=== PATIENT | female | born 1950 | race Caucasian/White ===

== ENCOUNTER 2018-07-18 11:38 | Day surgery (SDC) | payer MEDICARE, OTHER ==
[~2018-07-18] VITALS: Ht 157.5 cm; Wt 72.9 kg
[~2018-07-18 11:38] MED LIST: HYDACE5 PO; HYDCHL12.5 PO; LISI20 PO
== END 2018-07-18 14:10 | disposition home or self-care (01) ==
LOC: ORSCSDS 11:38
PROVIDERS: Surgery
PROC: 0DJD8ZZ Inspection of Lower Intestinal Tract, Via Natural or Artificial Opening Endoscopic (ICD-10-PCS; principal; 2018-07-18 13:00)
DX: K92.1 Melena (principal); K64.8 Other hemorrhoids; K64.4 Residual hemorrhoidal skin tags; I10 Essential (primary) hypertension; E66.9 Obesity, unspecified; Z68.30 Body mass index [BMI] 30.0-30.9, adult; Z79.899 Other long term (current) drug therapy
CPT/HCPCS: J7120

== ENCOUNTER 2021-07-20 10:27 | Inpatient (IN) | payer MEDICARE ==
[~2021-07-20] VITALS: Ht 157.5 cm; Wt 68.9 kg
[2021-07-20 10:51] LABS: BASOPHILS ABSOLUTE AUTO 0.01 K/mm3 (0.00-0.23); BASOPHILS PERCENT AUTO 0 % (0-2); EOSINOPHILS PERCENT AUTO 0 % (0-6); Hematocrit 39.5 % (33.0-51.0); Hemoglobin 12.7 g/dL (11.5-16.0); IMMATURE GRAN ABSOLUTE AUTO 0.09 K/mm3 (0.00-0.10); IMMATURE GRAN PERCENT AUTO 1 % (0-1); LYMPHOCYTES ABSOLUTE AUTO 1.59 K/mm3 (0.84-5.20); LYMPHOCYTES PERCENT AUTO 9 % (21-46); MONOCYTES ABSOLUTE AUTO 0.45 K/mm3 (0.16-1.47); MONOCYTES PERCENT AUTO 3 % (4-13); Mean Corpuscular HGB 29.3 pg (26.0-34.0); Mean Corpuscular HGB Conc 32.2 g/dL (31.5-36.5); Mean Corpuscular Volume 91 fL (80-100); Mean Platelet Volume 10.8 fL (9.1-12.4); NEUTROPHILS ABSOLUTE AUTO 14.99 K/mm3 (1.96-9.15); NEUTROPHILS PERCENT AUTO 88 % (41-73); Platelet Count 257 K/mm3 (150-400); RDW Coefficient Variation 14.8 % (11.7-14.2); RDW Standard Deviation 49.8 fL (35.1-46.3); Red Blood Cell Count 4.34 M/mm3 (3.80-5.20); White Blood Cell Count 17.13 K/mm3 (4.00-11.30)
[2021-07-20 11:16] LABS: Albumin, Blood 2.5 g/dL (3.4-5.0); Albumin/Globulin Ratio 0.6 (0.8-1.8); Bilirubin, Total 0.8 mg/dL (0.1-1.0); Bun/Creatinine Ratio 21.3 (12.0-20.0); Calcium, Blood 8.3 mg/dL (8.5-10.1); Creatinine, Blood 1.08 mg/dL (0.40-1.00); Globulin, Blood 4.3 g/dL (2.2-4.0); Potassium, Blood 4.3 mmol/L (3.5-5.5); Total Protein, Blood 6.8 g/dL (6.4-8.2)
--- NOTE | 2021-07-20 19:02 | NUR ---
SHIFT SUMMARY PATIENT ARRIVED TO THE FLOOR LATE THIS AFTERNOON. PATIENT ALERT AND ORIENTED UPON ARRIVAL. PATIENT TRANSFERED TO BED INDEPENDENTLY. PATIENT ON 6L O2 WITH SATS IN LOW 90S. PATIENT STATES FEELING WEAK. PATIENT ABLE TO ASSIST WITH ADMISSION INFORMATION. PATIENT MADE COMFORTABLE AND ORIENTED TO THE ROOM.
--- NOTE | 2021-07-21 04:09 | NUR ---
SHIFT SUMMARY A/OX4, SBA TO BSC. DESATS EASILY WITH EXERTION. CURRENTLY ON 12L VIA HIGH FLOW NC. VSS, NO ACUTE CHANGES AT THIS TIME. BED IN LOWEST POSITION WITH CALL LIGHT IN REACH. WILL CONTINUE TO MONITOR AND REPORT TO ONCOMING RN.
[2021-07-21 04:58] LABS: BASOPHILS ABSOLUTE AUTO 0.01 K/mm3 (0.00-0.23); BASOPHILS PERCENT AUTO 0 % (0-2); EOSINOPHILS PERCENT AUTO 0 % (0-6); Hematocrit 37.9 % (33.0-51.0); Hemoglobin 11.9 g/dL (11.5-16.0); IMMATURE GRAN ABSOLUTE AUTO 0.13 K/mm3 (0.00-0.10); IMMATURE GRAN PERCENT AUTO 1 % (0-1); LYMPHOCYTES ABSOLUTE AUTO 0.98 K/mm3 (0.84-5.20); LYMPHOCYTES PERCENT AUTO 7 % (21-46); MONOCYTES ABSOLUTE AUTO 0.41 K/mm3 (0.16-1.47); MONOCYTES PERCENT AUTO 3 % (4-13); Mean Corpuscular HGB Conc 31.4 g/dL (31.5-36.5); Mean Corpuscular Volume 92 fL (80-100); Mean Platelet Volume 10.8 fL (9.1-12.4); NEUTROPHILS ABSOLUTE AUTO 13.32 K/mm3 (1.96-9.15); NEUTROPHILS PERCENT AUTO 90 % (41-73); Platelet Count 268 K/mm3 (150-400); RDW Coefficient Variation 14.7 % (11.7-14.2); RDW Standard Deviation 50.4 fL (35.1-46.3); White Blood Cell Count 14.85 K/mm3 (4.00-11.30)
[2021-07-21 05:20] LABS: Alanine Aminotransfer (ALT/SGP 46 U/L (12-78); Albumin, Blood 2.2 g/dL (3.4-5.0); Albumin/Globulin Ratio 0.6 (0.8-1.8); Alk Phos 71 U/L (50-136); Anion Gap 6 mmol/L (6-16); Aspartate Aminotrans (AST/SGOT 31 U/L (12-37); Bilirubin, Total 0.7 mg/dL (0.1-1.0); Blood Urea Nitrogen 22 mg/dL (8-24); Bun/Creatinine Ratio 24.6 (12.0-20.0); CO2, Blood 28 mmol/L (21-32); Calcium, Blood 8.1 mg/dL (8.5-10.1); Chloride, Blood 106 mmol/L (98-108); Glomerular Filtration Rate >60 (60-); Glucose, Blood 107 mg/dL (70-99); Magnesium, Blood 2.6 mg/dL (1.6-2.4); Potassium, Blood 4.3 mmol/L (3.5-5.5); Sodium, Blood 140 mmol/L (136-145); Total Protein, Blood 6.2 g/dL (6.4-8.2)
--- NOTE | 2021-07-21 15:02 | NUR ---
PT UP TO VOID. COUGH MEDS GIVEN. BACK TO BED TO REST.
--- NOTE | 2021-07-21 16:49 | NUR ---
SHIFT SUMMARY PATIENT ALERT AND ORIENTED THIS SHIFT. PATIENT IS WEAK DUE TO DISEASE PROCESS. PATIENT IN A 1 ASSIST TO THE SBC DUE TO WEAKNESS. PATIENT HAS REMAINED IN BED THROUGHOUT THIS SHIFT, WITH FEW USES OF BSC. PATIENT ON 8L O2, O2 SAT IN THE 90S. PATIENT CURRENTLY LYING IN BED RESTING.
[2021-07-22 05:01] LABS: BASOPHILS ABSOLUTE AUTO 0.02 K/mm3 (0.00-0.23); BASOPHILS PERCENT AUTO 0 % (0-2); EOSINOPHILS PERCENT AUTO 0 % (0-6); Hematocrit 39.6 % (33.0-51.0); Hemoglobin 12.4 g/dL (11.5-16.0); IMMATURE GRAN ABSOLUTE AUTO 0.08 K/mm3 (0.00-0.10); IMMATURE GRAN PERCENT AUTO 1 % (0-1); LYMPHOCYTES ABSOLUTE AUTO 1.26 K/mm3 (0.84-5.20); LYMPHOCYTES PERCENT AUTO 9 % (21-46); MONOCYTES ABSOLUTE AUTO 0.65 K/mm3 (0.16-1.47); MONOCYTES PERCENT AUTO 5 % (4-13); Mean Corpuscular HGB 28.9 pg (26.0-34.0); Mean Corpuscular HGB Conc 31.3 g/dL (31.5-36.5); Mean Corpuscular Volume 92 fL (80-100); Mean Platelet Volume 10.6 fL (9.1-12.4); NEUTROPHILS ABSOLUTE AUTO 11.53 K/mm3 (1.96-9.15); NEUTROPHILS PERCENT AUTO 85 % (41-73); Platelet Count 316 K/mm3 (150-400); RDW Coefficient Variation 14.7 % (11.7-14.2); RDW Standard Deviation 49.7 fL (35.1-46.3); Red Blood Cell Count 4.29 M/mm3 (3.80-5.20); White Blood Cell Count 13.54 K/mm3 (4.00-11.30)
--- NOTE | 2021-07-22 19:31 | NUR ---
PT O2 NEEDS WENT DOWN THIS SHIFT TO 4L. REMAINS ALERT AND ORIENTED X4, MAKING NO COMPLAINTS AT THIS TIME. STAFF WILL CONTINUE TO MONITOR.
--- NOTE | 2021-07-23 06:54 | NUR ---
SHIFT SUMMARY; PATIENT DOING WELL, ON 4 LITERS OF O2, SATS HOLDING AT 96%. LUNG SOUNDS STILL COURSE, VERY MOIST COUGH, OCCAITONALLY PRODUCTIVE. VERY HACKING WHEN SHE GETS UP AND MOVES, SLEPT WELL ON SIDE ALL NIGHT. STATES SHE IS ABLE TO BREATH BETTER. NO PLEURIC PAIN OR DISCOMFORT. WILL BE ABLE TO WEAN OFF O2. VS WNL. AFEBRILE. CALL LIGHT IN REACH.
[2021-07-23] MEDS ORDERED: ACET325 PO (11:58)
[2021-07-23] MEDS ORDERED: DEXA6 PO (11:59)
[2021-07-23] MEDS ORDERED: GUAI600T33 PO (12:01)
[2021-07-23] MEDS ORDERED: LOSA50 PO (12:02)
--- NOTE | 2021-07-23 16:51 | NUR ---
PT DC'D HOME WITH INSTRUCTIONS. DC'D IV IN LAC AND PLACED PRESURE DRESSING. ASSISTED PT TO GET DRESSED AND TO WC/ ESCORT OUTSIDE TO FAMILY FOR DAUGHTERS TO ASSIST AT HOME. SENT WITH PORTABLE O2 AT 4L NC. PT ABLE TO STAND AND MOVE FROM BED TO CHAIR OR BSC SBA, BUT TIRES EASILY AND MILD DYSPNEA. STATES UNDERSTANDING OF DC INSTRUCTION AND COVID QUARANTINE. BELONGINGS SENT HOME WITH PT. RX FAXED TO [facility].
== END 2021-07-23 14:50 | disposition home health service (06) | DRG 177 ==
LOC: ER 10:27 → ERHOLD 12:36 → MEDS 12:36
PROVIDERS: Emergency Medicine; Nurse Practitioner Acute Care; ADMIT Internal Medicine
PROC: 8E0ZXY6 Isolation (ICD-10-PCS; principal; 2021-07-20)
PROC: 3E0333Z Introduction of Anti-inflammatory into Peripheral Vein, Percutaneous Approach (ICD-10-PCS; 2021-07-20)
DX: U07.1 COVID-19 (principal); J12.82 Pneumonia due to coronavirus disease 2019; J96.01 Acute respiratory failure with hypoxia; I10 Essential (primary) hypertension; Z88.8 Allergy status to other drugs, medicaments and biological substances; Z79.899 Other long term (current) drug therapy; Z90.49 Acquired absence of other specified parts of digestive tract; Z90.710 Acquired absence of both cervix and uterus
CPT/HCPCS: 36415; 71045; 80053; 82728; 83615; 83735; 84145; 85025; 94761; 96374; 97110; 97116; 97162; 99285-25; A9270; J1100; J1650; J7030